=== PATIENT | female | born 1935 | race Caucasian/White ===

== ENCOUNTER 2019-05-08 00:32 | Emergency (ER) | payer MEDICARE, MEDICAID ==
[~2019-05-08] VITALS: Ht 175.3 cm; Wt 115.9 kg
[~2019-05-08 00:32] MED LIST: ALBU6.7H9 INH; ASPI-1265 PO; ATOR40TA PO; CLIN-96 PO; DEXL60CA3 PO; ESCI10TA54 PO; FAMO40TA7 PO; FURO-150 PO; HYDR12.522 PO; HYDR1TAB PO; LORA1TAB PO; METO25TA6 PO
[2019-05-08] MEDS ORDERED: cyclobenzaprine 10mg tablet PO ONE (02:30)
[2019-05-08] MEDS ORDERED: naproxen 500mg tablet PO ONE (02:30)
[2019-05-08] MEDS ORDERED: furosemide 20MG tablet PO ONE (02:30)
[2019-05-08] MEDS ORDERED: CYCL-1 PO (02:32)
[2019-05-08 02:50] VITALS: BP 155/99
== END 2019-05-08 02:52 | disposition home or self-care (01) ==
LOC: ER 00:32
DX: R60.0 Localized edema (principal); M54.2 Cervicalgia; M54.9 Dorsalgia, unspecified; I48.91 Unspecified atrial fibrillation; E78.00 Pure hypercholesterolemia, unspecified; I10 Essential (primary) hypertension; K21.9 Gastro-esophageal reflux disease without esophagitis; G89.29 Other chronic pain; F41.9 Anxiety disorder, unspecified; F32.9 Major depressive disorder, single episode, unspecified; F10.99 Alcohol use, unspecified with unspecified alcohol-induced disorder; Z90.49 Acquired absence of other specified parts of digestive tract; Z90.710 Acquired absence of both cervix and uterus; Z98.890 Other specified postprocedural states; Z79.82 Long term (current) use of aspirin; Z79.899 Other long term (current) drug therapy; Y90.9 Presence of alcohol in blood, level not specified
CPT/HCPCS: 99284

== ENCOUNTER 2019-09-19 18:55 | Emergency (ER) | payer MEDICARE, MEDICAID ==
[~2019-09-19] VITALS: Ht 172.7 cm; Wt 118.2 kg
[~2019-09-19 18:55] MED LIST changes: +CLIN-90 PO; -CLIN-96 PO; +CYCL-1 PO
[2019-09-19] MEDS ORDERED: DEXL60CA3 PO (19:39)
[2019-09-19] MEDS ORDERED: NAPR-56 PO (19:39)
[2019-09-19] MEDS ORDERED: CEPH-572 PO (20:25)
[2019-09-19 20:38] VITALS: BP 148/93
== END 2019-09-19 20:41 | disposition home or self-care (01) ==
LOC: ER 18:56
DX: L03.115 Cellulitis of right lower limb (principal); I48.91 Unspecified atrial fibrillation; E78.00 Pure hypercholesterolemia, unspecified; I10 Essential (primary) hypertension; K21.9 Gastro-esophageal reflux disease without esophagitis; G89.29 Other chronic pain; M10.9 Gout, unspecified; Z90.49 Acquired absence of other specified parts of digestive tract; Z90.710 Acquired absence of both cervix and uterus; Z98.890 Other specified postprocedural states; Z79.82 Long term (current) use of aspirin; Z79.899 Other long term (current) drug therapy
CPT/HCPCS: 99284

== ENCOUNTER 2021-04-13 20:10 | Emergency (ER) | payer MEDICARE, MEDICAID ==
[~2021-04-13] VITALS: Ht 172.7 cm; Wt 110.0 kg
[~2021-04-13 20:10] MED LIST changes: -CLIN-90 PO; -CYCL-1 PO; +ESCI-8 PO; -ESCI10TA54 PO; -FURO-150 PO; -HYDR1TAB PO; -LORA1TAB PO; -METO25TA6 PO; +NAPR-56 PO
[2021-04-13 20:58] LABS: BASOPHILS # (AUTO) 0.1 X10'3 (0-0.2); BASOPHILS % (AUTO) 0.6 % (0-1); EOSINOPHILS # (AUTO) 0.8 X10'3 (0-0.9); EOSINOPHILS % (AUTO) 8.9 % (0-6); HEMATOCRIT 37.5 % (35.0-45.0); HEMOGLOBIN 12.6 g/dl (12.0-16.0); LYMPHOCYTES # (AUTO) 1.8 X10'3 (1.1-4.8); LYMPHOCYTES % (AUTO) 20.3 % (21-51); MEAN CORPUSCULAR HEMOGLOBIN 28.1 PG (27.0-31.0); MEAN CORPUSCULAR HGB CONC 33.7 g/dL (33.0-36.5); MEAN CORPUSCULAR VOLUME 83.5 FL (78-98); MEAN PLATELET VOLUME 6.9 FL (7.4-10.4); MONOCYTES % (AUTO) 11.1 % (2-12); NEUTROPHILS # (AUTO) 5.3 X10'3 (1.8-7.7); NEUTROPHILS % (AUTO) 59.1 % (42-75); PLATELET COUNT 272 X10'3 (140-440); RED CELL DISTRIBUTION WIDTH 14.1 % (11.5-14.5); WHITE BLOOD COUNT 8.9 X10'3 (4.5-11.0)
[2021-04-13 21:05] LABS: ALANINE AMINOTRANSFERASE 24 U/L (12-78); ALBUMIN 3.8 G/DL (3.4-5.0); ALKALINE PHOSPHATASE 117 IU/L (46-116); ANION GAP 15 (8-16); ASPARTATE AMINO TRANSFERASE 15 U/L (10-37); BILIRUBIN,TOTAL 0.7 MG/DL (0.1-1.0); BLOOD UREA NITROGEN 37 MG/DL (7-18); BUN/CREATININE RATIO 23.7 (6.6-38.0); CALCIUM 8.6 MG/DL (8.5-10.1); CHLORIDE 107 MMOL/L (99-107); CREATININE 1.56 MG/DL (0.40-0.90); GLUCOSE 102 MG/DL (70-104); POTASSIUM 4.4 MMOL/L (3.5-5.1); SODIUM 144 MMOL/L (135-145); TOTAL PROTEIN 7.7 G/DL (6.4-8.2); eGFR 31 ML/MIN
[2021-04-13] MEDS ORDERED: cephalexin 500mg capsule PO ONE (23:40)
[2021-04-13] MEDS ORDERED: furosemide 20MG tablet PO ONE (23:40)
[2021-04-13] MEDS ORDERED: CEPH250T PO (23:41)
[2021-04-13] MEDS ORDERED: FURO-150 PO (23:41)
[2021-04-13 23:48] VITALS: BP 160/76
== END 2021-04-13 23:59 | disposition home or self-care (01) ==
LOC: ER 20:11
DX: L03.116 Cellulitis of left lower limb (principal); L03.115 Cellulitis of right lower limb; I12.9 Hypertensive chronic kidney disease with stage 1 through stage 4 chronic kidney disease, or unspecified chronic kidney disease; N18.9 Chronic kidney disease, unspecified; F19.20 Other psychoactive substance dependence, uncomplicated; I48.91 Unspecified atrial fibrillation; E78.00 Pure hypercholesterolemia, unspecified; K21.9 Gastro-esophageal reflux disease without esophagitis; G89.29 Other chronic pain; M10.9 Gout, unspecified; Z85.9 Personal history of malignant neoplasm, unspecified; Z90.49 Acquired absence of other specified parts of digestive tract; Z90.710 Acquired absence of both cervix and uterus; Z72.89 Other problems related to lifestyle; Z79.82 Long term (current) use of aspirin; Z79.2 Long term (current) use of antibiotics; Z79.899 Other long term (current) drug therapy
CPT/HCPCS: 36415; 80053; 83880; 85025; 99283